=== PATIENT | male | born 1980 | race Caucasian/White ===

== ENCOUNTER → 2017-04-29 | Outpatient (CLI) | payer OTHER ==
--- NOTE | 2017-04-29 10:30 | MR ---
EXAMINATION TYPE: MR lumbar spine wo con DATE OF EXAM: 04/29/2017 COMPARISON: NONE HISTORY: intervertebral disc displacement pain, monoplegia of lower limb affecting unspecified site a ll per order. Extreme pain in back causing numbness in bilateral legs including buttocks and thigh si nce 2008 per patient. TECHNIQUE: Multiplanar, multisequence imaging of the lumbar spine is performed without IV contrast. FINDINGS: Sagittal images of the lumbar spine show vertebral body heights and alignment to appear sat isfactory. There is disc desiccation L5-S1 level with posterior disc herniation seen on sagittal imag es otherwise the intervertebral discs demonstrate normal heights and hydration. The conus medullaris is normal in position and signal ending at mid L1 level. The bone marrow signal intensity is within normal limits. No significant spurring is seen. Axial images show the T12-L1, L1-L2, L2-L3, L3-L4, and L4-L5 levels all to appear within normal limit s. Axial images at the L5-S1 level shows central disc protrusion but spinal canal is preserved and bilat eral neural foramina are patent. Increased signal posteriorly consistent with annular tear is noted. No suspicious retroperitoneal findings are seen. IMPRESSION: There is disc desiccation and annular tear L5-S1 level with posterior disc herniation not ed. No significant herniation however is seen to account for bilateral radiculopathy type symptoms.
== END | disposition home or self-care (01) ==
LOC: RADMRIMAIN 09:23
PROVIDERS: ATTEND Nurse Practitioner
DX: M51.27 Other intervertebral disc displacement, lumbosacral region (principal); M51.37 Other intervertebral disc degeneration, lumbosacral region
CPT/HCPCS: 72148

== ENCOUNTER → 2017-07-22 | Outpatient (CLI) | payer OTHER ==
[2017-07-22 11:51] LABS: Basophils % (A) 0 %; CHCM 35.1; Eosinophils # (A) 0.1 k/uL (0-0.7); Eosinophils % (A) 1 %; HCT 49.4 % (39.0-53.0); HDW 2.33; HGB 16.6 gm/dL (13.0-17.5); Luc # (Auto) 0.11; Luc % (Auto) 2; Lymphocytes # (A) 1.8 k/uL (1.0-4.8); Lymphocytes % (A) 25 %; MCH 31.8 pg (25.0-35.0); MCHC 33.6 g/dL (31.0-37.0); MCV 94.5 fL (80.0-100.0); Mean Platelet Volume 8.5; Monocytes # (A) 0.5 k/uL (0-1.0); Monocytes % (A) 7 %; Neutrophils # (A) 4.7 k/uL (1.3-7.7); Neutrophils % (A) 65 %; RBC 5.23 m/uL (4.30-5.90); RDW 14.1 % (11.5-15.5); WBC 7.2 k/uL (3.8-10.6); WBC (Perox) 6.98
[2017-07-22 12:18] LABS: ALT 30 U/L (21-72); AST 23 U/L (17-59); Alkaline Phosphatase 88 U/L (38-126); Anion Gap 11 mmol/L; Blood Urea Nitrogen 19 mg/dL (9-20); Calcium 9.2 mg/dL (8.4-10.2); Carbon Dioxide 24 mmol/L (22-30); Chloride 105 mmol/L (98-107); Glucose 98 mg/dL (74-99); Non-African American GFR(MDRD) >60 (>60 ml/min/1.73 sqM); Potassium 4.1 mmol/L (3.5-5.1); Sodium 140 mmol/L (137-145); Total Bilirubin 0.5 mg/dL (0.2-1.3); Total Protein 7.7 g/dL (6.3-8.2)
[2017-07-22 13:03] LABS: Vitamin B12 325 pg/mL (239-931)
== END | disposition home or self-care (01) ==
LOC: LABWHC1 11:06
PROVIDERS: ATTEND Nurse Practitioner Acute Care
DX: E55.9 Vitamin D deficiency, unspecified (principal); M62.838 Other muscle spasm
CPT/HCPCS: 36415; 80053; 82306; 82607; 84439; 84443; 84481; 85025

== ENCOUNTER → 2018-01-14 | Outpatient (CLI) | payer OTHER ==
--- NOTE | 2018-01-14 08:50 | MR ---
MRI CERVICAL SPINE: CLINICAL HISTORY: Cervicalgia per order. Neck pain that goes into arms since 2008. TECHNIQUE: Multiplanar, multisequence imaging of the cervical spine is performed without IV contrast. COMPARISON: CT cervical spine April 15, 2012. FINDINGS: Sagittal images of the cervical spine show the craniocervical junction to remain within nor mal limits. The cervical and upper thoracic spinal cord is normal in course, caliber, and signal. V ertebral alignment remains anatomic. The vertebral body and intravertebral disk heights remain natividad l. There are tiny posterior disc herniation C5-C6 and C6-C7 level on sagittal images minimally effaci ng anterior thecal sac. The bone marrow signal intensity is within normal limits. No significant spur ring is seen. Axial images show the C2-C3 level to appear within normal limits. Axial images at C3-C4 level show left central disc protrusion and left foraminal spur disc complex, t here is effacement of the anterior thecal sac and asymmetric mild left-sided neural foraminal narrowi ng. Right-sided neural foramen is patent. Axial images at C4-C5 level are felt within normal limits. Axial images at C5-C6 level show broad-based left paracentral disc protrusion effacing anterior theca l sac and causing moderate left and mild to moderate right-sided neural foraminal narrowing on axial image 24. Axial images at C6-C7 level show broad-based right paracentral disc protrusion effacing anterolateral thecal sac, bilateral neural foramina are patent. Axial images at C7-T1 level are felt within normal limits. IMPRESSION: Multilevel degenerative changes in the cervical spine as detailed above most prominent at C5-C6 level.
== END | disposition home or self-care (01) ==
LOC: RADMRIMAIN 08:05
PROVIDERS: ATTEND Psychiatry & Neurology Neurology
DX: M47.812 Spondylosis without myelopathy or radiculopathy, cervical region (principal); Z88.4 Allergy status to anesthetic agent; Z88.8 Allergy status to other drugs, medicaments and biological substances
CPT/HCPCS: 72141

== ENCOUNTER 2018-05-30 10:26 | Emergency (ER) | payer OTHER ==
--- NOTE | 2018-05-30 10:41 | ED ---
Male Urogenital HPI - General Chief complaint: Urogenital Stated complaint: Male Gu Time Seen by Provider: 05/30/18 10:36 Source: patient, RN notes reviewed Mode of arrival: ambulatory Limitations: no limitations - History of Present Illness Initial comments: This a 37-year-old male presents emergency Department chief complaint of dysuria. Patient states that this has been present for last week with no improvement. Patient denies any penile lesions, sores or any penile drainage. Patient is concerned that he may have an STD as he recently found out his has been having intercourse with several other people has been unprotected. Patient states that he has no history of STD. Patient denies any prior urinary tract infections. Denies any fever, chills, flank pain, abdominal discomfort. - Related Data Home Medications Medication Instructions Recorded Confirmed Baclofen [Lioresal] 10 mg PO BID PRN 05/30/18 05/30/18 DULoxetine HCL [Cymbalta] 30 mg PO BID 05/30/18 05/30/18 HYDROcodone/APAP 5-325MG [[place] 1 tab PO BID 05/30/18 05/30/18 5-325] Sertraline [Zoloft] 100 mg PO DAILY 05/30/18 05/30/18 Allergies Allergy/AdvReac Type Severity Reaction Status Date / Time cortisone Allergy Unknown Verified 05/30/18 10:51 cyclobenzaprine HCl Allergy Rash/Hives Verified 05/30/18 10:51 [From Flexeril] ketorolac Allergy Nausea & Verified 05/30/18 10:51 Vomiting lidocaine Allergy Rash/Hives Verified 05/30/18 10:51 Review of Systems ROS Statement: Those systems with pertinent positive or pertinent negative responses have been documented in the HPI. ROS Other: All systems not noted in ROS Statement are negative. Past Medical History Past Medical History: No Reported History History of Any Multi-Drug Resistant Organisms: None Reported Past Surgical History: No Surgical Hx Reported Past Psychological History: No Psychological Hx Reported Smoking Status: Never smoker Past Alcohol Use History: None Reported Past Drug Use History: Marijuana General Exam Limitations: no limitations General appearance: alert, in no apparent distress Head exam: Present: atraumatic, normocephalic, normal inspection Respiratory exam: Present: normal lung sounds bilaterally. Absent: respiratory distress, wheezes, rales, rhonchi, stridor Cardiovascular Exam: Present: regular rate, normal rhythm, normal heart sounds. Absent: systolic murmur, diastolic murmur, rubs, gallop, clicks GI/Abdominal exam: Present: soft, normal bowel sounds. Absent: distended, tenderness, guarding, rebound, rigid Back exam: Absent: CVA tenderness (R), CVA tenderness (L) Skin exam: Present: warm, dry, intact, normal color. Absent: rash Course Vital Signs 05/30/18 10:30 Temperature 98.3 F Pulse Rate 79 Respiratory 18 Rate Blood Pressure 141/95 O2 Sat by Pulse 99 Oximetry Medical Decision Making - Medical Decision Making 37-year-old male presents from for dysuria. Patient is concerned about possible STDs. Patient's urine was cultured, GC chlamydia were obtained. Patient has no evidence UTI on urinalysis. Patient was given Rocephin and azithromycin. - Lab Data Lab Results 05/30/18 Range/Units 10:38 Urine Color Yellow Urine Appearance Clear (Clear) Urine pH 5.5 (5.0-8.0) Ur Specific [place] 1.030 (1.001-1.035) Urine Protein 1+ H (Negative) Urine Glucose (UA) Negative (Negative) Urine Ketones Trace H (Negative) Urine Blood Negative (Negative) Urine Nitrite Negative (Negative) Urine Bilirubin Negative (Negative) Urine Urobilinogen 2.0 (<2.0) mg/dL Ur Leukocyte Esterase Negative (Negative) Urine WBC 1 (0-5) /hpf Urine Mucus Many H (None) /hpf Disposition Clinical Impression: Dysuria Disposition: HOME SELF-CARE Condition: Stable Instructions: Dysuria (ED) Additional Instructions: Please return to the Emergency Department if symptoms worsen or any other concerns. Is patient prescribed a controlled substance at d/c from ED?: No Referrals: Lorena Johnson MD [Primary Care Provider] - 1-2 days Time of Disposition: 11:18
[2018-05-30 11:04] LABS: Appearance,Urine Clear (Clear); Bilirubin,Urine Negative (Negative); Blood,Urine Negative (Negative); Color,Urine Yellow; Glucose,Urine (UA) Negative (Negative); Ketones,Urine Trace (Negative); Leukocyte Esterase,Urine Negative (Negative); Mucus,Urine Many /hpf; Nitrite,Urine Negative (Negative); PH, Urine 5.5 (5.0-8.0); Protein,Urine 1+ (Negative); WBC,Urine 1 /hpf (0-5)
[2018-05-30] MEDS ORDERED: cefTRIAXone 250 MG VIAL IM STA (11:17)
[2018-05-30] MEDS ORDERED: AZITHROMYCIN 250 MG TAB PO STA (11:17)
[2018-05-30 11:51] VITALS: BP 135/65; PULSE 72; RESP 20; TEMP 98.6
[2018-06-01 08:30] LABS: C. trachomatis,PCR Negative (Neg,Equiv); Chlamydia trachomatis Source Urine
[2018-06-01 09:20] LABS: N. gonorrhoeae,PCR Negative (Neg,Equiv); Neisseria Source Urine
== END 2018-05-30 11:50 | disposition home or self-care (01) ==
LOC: EC 10:26
DX: R30.0 Dysuria (principal); Z79.891 Long term (current) use of opiate analgesic; Z79.899 Other long term (current) drug therapy; Z88.4 Allergy status to anesthetic agent; Z88.6 Allergy status to analgesic agent; Z88.8 Allergy status to other drugs, medicaments and biological substances
CPT/HCPCS: 81001; 87491; 87591; 87086; 99283; 96372; J0696

== ENCOUNTER 2018-10-13 20:39 | Emergency (ER) | payer OTHER ==
[2018-10-13 20:45] VITALS: RESP 20
[2018-10-13] MEDS ORDERED: cefTRIAXone 250 MG VIAL IM STA (21:05)
[2018-10-13] MEDS ORDERED: AZITHROMYCIN 500 MG TAB PO STA (21:06)
[2018-10-13 21:18] LABS: Appearance,Urine Clear (Clear); Bilirubin,Urine Negative (Negative); Blood,Urine Negative (Negative); Color,Urine Yellow; Glucose,Urine (UA) Negative (Negative); Ketones,Urine Trace (Negative); Leukocyte Esterase,Urine Negative (Negative); Nitrite,Urine Negative (Negative); Protein,Urine Trace (Negative); Specific Gravity,Urine 1.024 (1.001-1.035)
--- NOTE | 2018-10-13 21:47 | ED ---
General Adult HPI - General Chief complaint: Recheck/Abnormal Lab/Rx Stated complaint: STD Testing Source: patient, RN notes reviewed, old records reviewed Mode of arrival: ambulatory Limitations: no limitations - History of Present Illness Initial comments: 37-year-old male patient presents to ED for evaluation of potential STI. Patient states the exception ago from approximately 3 weeks ago. Patient states that he has had approximately 3 days of dysuria, burning with urination, some stringy discharge from his urethra. Patient has had chlamydia in the past , states that this feels the same. Patient denies any lesions on penis, denies any pain in testicles a prostate. Patient denies fever chills, nausea vomiting diarrhea, chest pain, shortness breath, or symptoms. Systemic: Pt denies fatigue, myalgia, fever/chills, rash. Pt denies weakness, night sweats, weight loss. Neuro: Pt denies headache, visual disturbances, syncope or pre-syncope. HEENT: Pt denies ocular discharge or irritation, otalgia, rhinorrhea, pharyngitis or notable lymphadenopathy. Cardiopulmonary: Pt denies chest pain, SOB, heart palpitations, dyspnea on exertion. Abdominal/GI: Pt denies abdominal pain, n/v/d. : Denies new onset urinary or bowel incontinence. MSK: Pt denies myalgia, loss of strength or function in extremities. Neuro: Pt denies new onset weakness, paresthesias. - Related Data Home Medications Medication Instructions Recorded Confirmed Baclofen [Lioresal] 10 mg PO BID PRN 05/30/18 05/30/18 DULoxetine HCL [Cymbalta] 30 mg PO BID 05/30/18 05/30/18 HYDROcodone/APAP 5-325MG [[place] 1 tab PO BID 05/30/18 05/30/18 5-325] Sertraline [Zoloft] 100 mg PO DAILY 05/30/18 05/30/18 Allergies Allergy/AdvReac Type Severity Reaction Status Date / Time cortisone Allergy Unknown Verified 10/13/18 20:45 cyclobenzaprine HCl Allergy Rash/Hives Verified 10/13/18 20:45 [From Flexeril] ketorolac Allergy Nausea & Verified 10/13/18 20:45 Vomiting lidocaine Allergy Rash/Hives Verified 10/13/18 20:45 Review of Systems ROS Statement: Those systems with pertinent positive or pertinent negative responses have been documented in the HPI. ROS Other: All systems not noted in ROS Statement are negative. Past Medical History Past Medical History: Seizure Disorder History of Any Multi-Drug Resistant Organisms: None Reported Past Surgical History: No Surgical Hx Reported Past Psychological History: No Psychological Hx Reported Smoking Status: Never smoker Past Alcohol Use History: None Reported Past Drug Use History: Marijuana General Exam - General Exam Comments Initial Comments: Constitutional: NAD, AOX3, Pt has pleasant affect. HEENT: NC/AT, trachea midline, neck supple, no lymphadenopathy. Posterior pharynx non erythematous, without exudates. External ears appear normal, without discharge. Mucous membranes moist. Eyes PERRLA, EOM intact. There is no scleral icterus. No pallor noted. Cardiopulmonary: RRR, no murmurs, rubs or gallops, no JVD noted. Lungs CTAB in anterior and posterior brown. No peripheral edema. Abdominal exam: Abdomen soft and non-distended. Abdomen non-tender to palpation in all 4 quadrants. Bowel sounds active in LLQ. No hepatosplenomegaly. Neuro: CN II-XII grossly intact. No nuchal rigidity. MSK: No posterior calf tenderness bilaterally, homans sign negative bilaterally. Posterior tibialis and radial pulse +2 bilaterally. : No lesions noted on penis, no pain testicles/epididymitis, no rash, no papules, no discharge noted return. Limitations: no limitations Course Vital Signs 10/13/18 10/13/18 20:42 21:58 Temperature 98.4 F 98.7 F Pulse Rate 82 80 Respiratory 20 20 Rate Blood Pressure 141/92 140/82 O2 Sat by Pulse 95 98 Oximetry Medical Decision Making - Medical Decision Making 37-year-old male patient presents in ED for evaluation of potential gonorrhea or chlamydia exposure. Patient has had approximately 3 days of dysuria. Patient disease that I/chlamydia in the past states that this feels the same. Patient also had a proximal to 2 days of discharge from urethra. Physical exam did not display acute abnormality. Genital exam did not display any pathology, no discharge noted, no lesions, no other pathologic findings. Patient treated empirically for gonorrhea/chlamydia. UA did not display any UTI. Patient denies extremity PCR tests conducted, patient recontacted the positive. Patient to follow-up PCP in 1-2 days. Patient to return to ED if any signs or symptoms develop including lesion, fever/chills, nausea vomiting diarrhea, pain in testicles, pain prostate, any other new symptoms. Case discussed with Dr. López. - Lab Data Lab Results 10/13/18 Range/Units 21:10 Urine Color Yellow Urine Appearance Clear (Clear) Urine pH 6.0 (5.0-8.0) Ur Specific [place] 1.024 (1.001-1.035) Urine Protein Trace H (Negative) Urine Glucose (UA) Negative (Negative) Urine Ketones Trace H (Negative) Urine Blood Negative (Negative) Urine Nitrite Negative (Negative) Urine Bilirubin Negative (Negative) Urine Urobilinogen 2.0 (<2.0) mg/dL Ur Leukocyte Esterase Negative (Negative) Disposition Clinical Impression: STI (sexually transmitted infection) Disposition: HOME SELF-CARE Condition: Good Instructions: Chlamydia (ED), Gonorrhea (ED) Additional Instructions: Patient to adhere to previously discussed treatment plan and will take medication(s) as directed. Patient to follow up with PCP in 1-2 days. Patient to return to ED if symptoms do not improve. Is patient prescribed a controlled substance at d/c from ED?: No Referrals: Lorena Johnson MD [Primary Care Provider] - 1-2 days Time of Disposition: 21:47
[2018-10-13 21:59] VITALS: BP 140/82; PULSE 80; TEMP 98.7
== END 2018-10-13 21:58 | disposition home or self-care (01) ==
LOC: EC 20:39
DX: A64 Unspecified sexually transmitted disease (principal); Z79.899 Other long term (current) drug therapy; Z79.891 Long term (current) use of opiate analgesic; Z88.8 Allergy status to other drugs, medicaments and biological substances; Z88.6 Allergy status to analgesic agent
CPT/HCPCS: 81003; 87491; 87591; 99284; 96372; J0696

== ENCOUNTER 2018-12-09 13:29 | Emergency (ER) | payer OTHER ==
[2018-12-09 13:35] VITALS: BP 137/99; PULSE 99; RESP 20; TEMP 98
[2018-12-09] MEDS ORDERED: metroNIDAZOLE 500 MG TAB PO STA (13:51)
--- NOTE | 2018-12-09 14:12 | ED ---
General Adult HPI - General Chief complaint: Recheck/Abnormal Lab/Rx Stated complaint: Male Time Seen by Provider: 12/09/18 13:38 Source: patient, RN notes reviewed Mode of arrival: ambulatory Limitations: no limitations - History of Present Illness Initial comments: 38-year-old male without any significant past medical history presents to the emergency department for a chief complaint of exposure to Trichomonas. Patient states he was having symptoms of STDs about 2 months ago when he was tested and treated for gonorrhea and Chlamydia. These were negative but symptoms did resolve. Patient states that he recently found out his girlfriend was positive for Trichomonas. Patient states he was not tested or treated for this STD. Patient states he would like treatment today. He denies any symptoms. He denies dysuria, urethral discharge, testicular pain or swelling. Patient has no other complaints at this time including shortness of breath, chest pain, abdominal pain, nausea or vomiting, headache, or visual changes. - Related Data Home Medications Medication Instructions Recorded Confirmed Baclofen [Lioresal] 10 mg PO BID PRN 05/30/18 12/09/18 DULoxetine HCL [Cymbalta] 60 mg PO DAILY 12/09/18 12/09/18 Allergies Allergy/AdvReac Type Severity Reaction Status Date / Time cortisone Allergy Unknown Verified 12/09/18 13:43 cyclobenzaprine HCl Allergy Rash/Hives Verified 12/09/18 13:43 [From Flexeril] ketorolac Allergy Nausea & Verified 12/09/18 13:43 Vomiting lidocaine Allergy Rash/Hives Verified 12/09/18 13:43 Review of Systems ROS Statement: Those systems with pertinent positive or pertinent negative responses have been documented in the HPI. ROS Other: All systems not noted in ROS Statement are negative. Past Medical History Past Medical History: Seizure Disorder History of Any Multi-Drug Resistant Organisms: None Reported Past Surgical History: No Surgical Hx Reported Past Psychological History: No Psychological Hx Reported Smoking Status: Never smoker Past Drug Use History: Marijuana General Exam Limitations: no limitations General appearance: alert, in no apparent distress Head exam: Present: atraumatic, normocephalic, normal inspection Eye exam: Present: normal appearance, PERRL, EOMI. Absent: scleral icterus, conjunctival injection, periorbital swelling ENT exam: Present: normal exam, mucous membranes moist Neck exam: Present: normal inspection, full ROM. Absent: tenderness, meningismus, lymphadenopathy Respiratory exam: Present: normal lung sounds bilaterally. Absent: respiratory distress, wheezes, rales, rhonchi, stridor Cardiovascular Exam: Present: regular rate, normal rhythm, normal heart sounds. Absent: systolic murmur, diastolic murmur, rubs, gallop, clicks GI/Abdominal exam: Present: soft, normal bowel sounds. Absent: distended, tenderness, guarding, rebound, rigid exam: Present: other (Patient refused) Neurological exam: Present: alert, oriented X3, CN II-XII intact Psychiatric exam: Present: normal affect, normal mood Course Vital Signs 12/09/18 13:32 Temperature 98.0 F Pulse Rate 99 Respiratory 20 Rate Blood Pressure 137/99 O2 Sat by Pulse 99 Oximetry Medical Decision Making - Medical Decision Making 38-year-old male presents to the emergency department for exposure to Trichomonas. Patient was treated and tested negatively for gonorrhea and chlamydia. Patient denies any symptoms. Patient was exposed to Trichomonas. I did offer to test patient for Trichomonas as well as repeat gonorrhea and chlamydia testing which she refuses. He states he would rather be treated for Trichomonas. I did offer to treat for gonorrhea and chlamydia as well but he isn't concerned for these and does not want treatment at this time. Patient will be treated with 2 g of Flagyl. He will follow up with primary care. He will return if he has any worsening symptoms. Discussed practices for safe sexual intercourse and to make sure his girlfriend is treated for Trichomonas as well. Disposition Clinical Impression: Possible exposure to STD Disposition: HOME SELF-CARE Condition: Good Instructions (If sedation given, give patient instructions): Sexually Transmitted Diseases (ED), Trichomoniasis (ED), Safe Sex (ED) Additional Instructions: Please follow up with primary care in 1-2 days. Please return to the emergency department if you have any worsening symptoms. Is patient prescribed a controlled substance at d/c from ED?: No Referrals: Lorena Johnson MD [Primary Care Provider] - 1-2 days Time of Disposition: 14:08
== END 2018-12-09 14:18 | disposition home or self-care (01) ==
LOC: EC 13:29
DX: Z20.2 Contact with and (suspected) exposure to infections with a predominantly sexual mode of transmission (principal); Z88.4 Allergy status to anesthetic agent; Z88.6 Allergy status to analgesic agent; Z88.8 Allergy status to other drugs, medicaments and biological substances; Z79.899 Other long term (current) drug therapy; Z53.20 Procedure and treatment not carried out because of patient's decision for unspecified reasons
CPT/HCPCS: 99283

== ENCOUNTER 2020-09-07 02:54 | Emergency (ER) | payer OTHER ==
[2020-09-07 03:04] VITALS: BP 118/80; PULSE 85; RESP 17; TEMP 98.8
[2020-09-07] MEDS ORDERED: DOXYCYCLINE 100 MG CAP PO STA (03:12)
--- NOTE | 2020-09-07 03:18 | ED ---
Skin/Abscess/FB HPI - General Chief complaint: Skin/Abscess/Foreign Body Stated complaint: Bit by a tick Time Seen by Provider: 09/07/20 02:56 Source: patient, RN notes reviewed, old records reviewed Mode of arrival: ambulatory Limitations: no limitations - History of Present Illness Initial comments: this is a 39-year-old male 2 the ER for evaluation patient has wound to right leg patient found take on his leg 2 days ago, patient states he pulled the tick off and has now developed a rash. No other complaints no fevers, no significant other symptoms MD complaint: rash, insect bite/sting (we'll patient believes his tick bite to right leg) -: days(s) (2) Tetanus Up to Date: yes Location: [facility] Severity: mild Severity scale (1-10): 2 Quality: aching Consistency: constant Improves with: none Worsens with: none Context: none Associated symptoms: other (mild rash) Treatments Prior to Arrival: none - Related Data Home Medications Medication Instructions Recorded Confirmed Baclofen [Lioresal] 10 mg PO BID PRN 05/30/18 12/09/18 DULoxetine HCL [Cymbalta] 60 mg PO DAILY 12/09/18 12/09/18 Previous Rx's Medication Instructions Recorded Doxycycline [Vibramycin] 100 mg PO BID 21 Days #42 capsule 09/07/20 Allergies Allergy/AdvReac Type Severity Reaction Status Date / Time cortisone Allergy Unknown Verified 09/07/20 03:04 cyclobenzaprine HCl Allergy Rash/Hives Verified 09/07/20 03:04 [From Flexeril] ketorolac Allergy Nausea & Verified 09/07/20 03:04 Vomiting lidocaine Allergy Rash/Hives Verified 09/07/20 03:04 Review of Systems ROS Statement: Those systems with pertinent positive or pertinent negative responses have been documented in the HPI. ROS Other: All systems not noted in ROS Statement are negative. Past Medical History Past Medical History: Seizure Disorder Additional Past Medical History / Comment(s): back pain History of Any Multi-Drug Resistant Organisms: None Reported Past Surgical History: No Surgical Hx Reported Past Psychological History: No Psychological Hx Reported Smoking Status: Never smoker Past Alcohol Use History: None Reported Past Drug Use History: None Reported, Marijuana General Exam - General Exam Comments Initial Comments: dylan does have mild rash to right lower extremity with open wound Limitations: no limitations General appearance: alert, in no apparent distress Head exam: Present: atraumatic, normocephalic, normal inspection Eye exam: Present: normal appearance, PERRL, EOMI. Absent: scleral icterus, conjunctival injection, periorbital swelling ENT exam: Present: normal exam, mucous membranes moist Neck exam: Present: normal inspection. Absent: tenderness, meningismus, lymphadenopathy Respiratory exam: Present: normal lung sounds bilaterally. Absent: respiratory distress, wheezes, rales, rhonchi, stridor Cardiovascular Exam: Present: regular rate, normal rhythm, normal heart sounds. Absent: systolic murmur, diastolic murmur, rubs, gallop, clicks GI/Abdominal exam: Present: soft, normal bowel sounds. Absent: distended, tenderness, guarding, rebound, rigid Extremities exam: Present: normal inspection, full ROM, normal capillary refill. Absent: tenderness, pedal edema, joint swelling, calf tenderness Back exam: Present: normal inspection Neurological exam: Present: alert, oriented X3, CN II-XII intact Psychiatric exam: Present: normal affect, normal mood Skin exam: Present: warm, dry, intact, normal color. Absent: rash Course Vital Signs 09/07/20 03:02 Temperature 98.8 F Pulse Rate 85 Respiratory 17 Rate Blood Pressure 118/80 O2 Sat by Pulse 99 Oximetry - Reevaluation(s) Reevaluation #1: 09/07/20 03:17 medical records reviewed Reevaluation #2: 09/07/20 03:17 patient to follow-up with primary care Medical Decision Making - Medical Decision Making 39-year-old male to the ER for evaluation of right hip pain.patient does have what appears to be tick bites that leg we'll treat patient with antibiotics and discharged follow-up with primary Disposition Clinical Impression: Tick bite, Tick bite of right thigh Disposition: HOME SELF-CARE Condition: Good Instructions (If sedation given, give patient instructions): Tick Bite (ED) Prescriptions: Doxycycline [Vibramycin] 100 mg PO BID 21 Days #42 capsule Is patient prescribed a controlled substance at d/c from ED?: No Referrals: Dulce Hernandez NPC [Primary Care Provider] - 1-2 days
== END 2020-09-07 03:26 | disposition home or self-care (01) ==
LOC: EC 02:54
DX: S70.361A Insect bite (nonvenomous), right thigh, initial encounter (principal); Z88.8 Allergy status to other drugs, medicaments and biological substances; Z88.6 Allergy status to analgesic agent; W57.XXXA Bitten or stung by nonvenomous insect and other nonvenomous arthropods, initial encounter
CPT/HCPCS: 99282

== ENCOUNTER 2020-10-20 11:51 | Emergency (ER) | payer OTHER ==
[2020-10-20 12:12] VITALS: BP 144/83; PULSE 99; RESP 18; TEMP 98.2
[2020-10-20] MEDS ORDERED: cefTRIAXone 250 MG VIAL IM STA (12:21)
[2020-10-20] MEDS ORDERED: AZITHROMYCIN 250 MG TAB PO STA (12:21)
--- NOTE | 2020-10-20 12:23 | ED ---
Male Urogenital HPI - General Chief complaint: Urogenital Stated complaint: STD Test Time Seen by Provider: 10/20/20 12:10 Source: patient, RN notes reviewed Mode of arrival: ambulatory Limitations: no limitations - History of Present Illness Initial comments: 40-year-old male presents emergency Department chief complaint of possible STD exposure. Patient states he had intercourse on and That Today She Was Positive for Gonorrhea and Chlamydia. Patient States That He Has Slight Discharge No Dysuria No Fevers or Chills. Patient Denies Any Penile Lesions or Sores. Patient Offers No Other Complaints. - Related Data Home Medications Medication Instructions Recorded Confirmed Baclofen [Lioresal] 10 mg PO BID PRN 05/30/18 12/09/18 DULoxetine HCL [Cymbalta] 60 mg PO DAILY 12/09/18 12/09/18 Previous Rx's Medication Instructions Recorded Doxycycline [Vibramycin] 100 mg PO BID 21 Days #42 capsule 09/07/20 Allergies Allergy/AdvReac Type Severity Reaction Status Date / Time cortisone Allergy Unknown Verified 10/20/20 12:12 cyclobenzaprine HCl Allergy Rash/Hives Verified 10/20/20 12:12 [From Flexeril] ketorolac Allergy Nausea & Verified 10/20/20 12:12 Vomiting lidocaine Allergy Rash/Hives Verified 10/20/20 12:12 Review of Systems ROS Statement: Those systems with pertinent positive or pertinent negative responses have been documented in the HPI. ROS Other: All systems not noted in ROS Statement are negative. Past Medical History Past Medical History: Seizure Disorder Additional Past Medical History / Comment(s): back pain History of Any Multi-Drug Resistant Organisms: None Reported Past Surgical History: No Surgical Hx Reported Past Psychological History: Bipolar, Depression Smoking Status: Vaper Past Alcohol Use History: None Reported Past Drug Use History: None Reported, Marijuana General Exam Limitations: no limitations General appearance: alert, in no apparent distress Head exam: Present: atraumatic, normocephalic, normal inspection Eye exam: Present: normal appearance, PERRL, EOMI. Absent: scleral icterus, conjunctival injection, periorbital swelling Respiratory exam: Present: normal lung sounds bilaterally. Absent: respiratory distress, wheezes, rales, rhonchi, stridor Cardiovascular Exam: Present: regular rate, normal rhythm, normal heart sounds. Absent: systolic murmur, diastolic murmur, rubs, gallop, clicks GI/Abdominal exam: Present: soft, normal bowel sounds. Absent: distended, tenderness, guarding, rebound, rigid Course Vital Signs 10/20/20 12:08 Temperature 98.2 F Pulse Rate 99 Respiratory 18 Rate Blood Pressure 144/83 O2 Sat by Pulse 97 Oximetry Medical Decision Making - Medical Decision Making Patient was given Rocephin, azithromycin. Patient advised to remain absent for 1 week. Coronary and chlamydia testing were sent. Disposition Clinical Impression: STD exposure Disposition: HOME SELF-CARE Condition: Stable Instructions (If sedation given, give patient instructions): Sexually Transmitted Diseases (ED) Additional Instructions: Please return to the Emergency Department if symptoms worsen or any other concerns. Is patient prescribed a controlled substance at d/c from ED?: No Referrals: Lorena Johnson MD [Primary Care Provider] - 1-2 days Time of Disposition: 12:23
[2020-10-22 15:17] LABS: C. trachomatis,PCR Negative (Neg,Equiv); Chlamydia trachomatis Source Urine; N. gonorrhoeae,PCR Negative (Neg,Equiv); Neisseria Source Urine
== END 2020-10-20 12:42 | disposition home or self-care (01) ==
LOC: EC 11:51
DX: Z20.2 Contact with and (suspected) exposure to infections with a predominantly sexual mode of transmission (principal); M54.9 Dorsalgia, unspecified; F32.9 Major depressive disorder, single episode, unspecified; F17.290 Nicotine dependence, other tobacco product, uncomplicated; Z79.899 Other long term (current) drug therapy
CPT/HCPCS: 87491; 87591; 99283; 96372; J0696

== ENCOUNTER 2023-03-30 20:47 | Observation (INO) | payer OTHER ==
[2023-03-30 21:54] LABS: Basophils # (A) 0.1 k/uL (0-0.2); Basophils % (A) 0 %; Eosinophils # (A) 0.1 k/uL (0-0.7); Eosinophils % (A) 1 %; HCT 44.2 % (39.0-53.0); HGB 15.2 gm/dL (13.0-17.5); Lymphocytes # (A) 2.2 k/uL (1.0-4.8); Lymphocytes % (A) 19 %; MCHC 34.3 g/dL (31.0-37.0); MCV 90.5 fL (80.0-100.0); Mean Platelet Volume 8.8; Monocytes # (A) 0.6 k/uL (0-1.0); Monocytes % (A) 5 %; Neutrophils # (A) 8.3 k/uL (1.3-7.7); Neutrophils % (A) 72 %; Platelet Count 262 k/uL (150-450); RBC 4.89 m/uL (4.30-5.90); RDW 12.7 % (11.5-15.5); WBC 11.4 k/uL (3.8-10.6)
[2023-03-30 22:11] LABS: Partial Thromboplastin Time 25.5 sec (22.0-30.0); Prothrombin Time 10.4 sec (9.0-12.0)
[2023-03-30 22:34] LABS: ALT 33 U/L (4-49); AST 41 U/L (17-59); African American GFR (CKD) >90 (>60 ml/min/1.73 sqM); Albumin 4.4 g/dL (3.5-5.0); Alkaline Phosphatase 92 U/L (38-126); Anion Gap 13 mmol/L; Blood Urea Nitrogen 15 mg/dL (9-20); Calcium 8.8 mg/dL (8.4-10.2); Carbon Dioxide 25 mmol/L (22-30); Chloride 104 mmol/L (98-107); Glucose 134 mg/dL (74-99); Non-African American GFR(CKD) 88 (>60 ml/min/1.73 sqM); Potassium 3.6 mmol/L (3.5-5.1); Sodium 142 mmol/L (137-145); Total Bilirubin 0.6 mg/dL (0.2-1.3); Total Protein 7.6 g/dL (6.3-8.2)
[2023-03-30] MEDS ORDERED: HYDROmorphone 0.5 MG/0.5 ML SYRINGE IVP STA (23:06)
[2023-03-30] MEDS ORDERED: SODIUM CHLORIDE 0.9% 1,000 ML IV ONE (23:06)
--- NOTE | 2023-03-30 23:31 | XR ---
EXAMINATION TYPE: XR chest 2V DATE OF EXAM: 03/30/2023 COMPARISON: 03/11/2015 INDICATION: Chest pain and dizziness TECHNIQUE: Frontal and lateral views of the chest are obtained. FINDINGS: The heart size is normal. The pulmonary vasculature is normal. The lungs are clear. IMPRESSION: 1. No acute pulmonary process.
--- NOTE | 2023-03-30 23:46 | US ---
EXAMINATION TYPE: US venous doppler duplex LE LT DATE OF EXAM: 03/30/2023 9:46 PM COMPARISON: NONE CLINICAL INDICATION: Male, 42 years old with history of pain and swelling; SOB and pain in left leg. Pt states he had previous 1 week ago at [facility] that was negative for DVT SIDE PERFORMED: Left TECHNIQUE: The lower extremity deep venous system is examined utilizing real time linear array sonog jaden with graded compression, doppler sonography and color-flow sonography. VESSELS IMAGED: Common Femoral Vein Deep Femoral Vein Greater Saphenous Vein * Femoral Vein Popliteal Vein Small Saphenous Vein * Proximal Calf Veins (* superficial vessels) Left Leg: Negative for DVT IMPRESSION: 1. Left lower extremity ultrasound negative for deep venous thrombosis
--- NOTE | 2023-03-30 23:54 | ED ---
General Adult HPI - General Chief complaint: Chest Pain Stated complaint: Chest pain, Left Leg Swelling, Dizziness Time Seen by Provider: 03/30/23 21:37 Source: patient, RN notes reviewed, old records reviewed Mode of arrival: wheelchair Limitations: no limitations - History of Present Illness Initial comments: 42-year-old male presents for evaluation of left leg swelling which is been present over the past one week and the development of central chest pain and dyspnea. This is been present for the past 2 days. Patient states he was seen at outside hospital and had ultrasound performed of the left leg which was negative for DVT. He states he has no prior cardiac history. No history of DVT or PE. He states he has had some weight gain over the past several months. No fever. No cough. - Related Data Home Medications Medication Instructions Recorded Confirmed Baclofen [Lioresal] 10 mg PO BID PRN 05/30/18 03/31/23 Cariprazine HCl [Vraylar] 1.5 mg PO DAILY 03/31/23 03/31/23 DULoxetine HCL [Cymbalta] 40 mg PO BID 03/31/23 03/31/23 Dextroamphetamine/Amphetamine 30 mg PO BID 03/31/23 03/31/23 [Adderall] Diclofenac Sodium Gel [Voltaren 2 - 4 gm TOPICAL QID PRN 03/31/23 03/31/23 Gel] Ergocalciferol [Vitamin D2 (1250 1,250 mcg PO QMONTHLY 03/31/23 03/31/23 Mcg = 55208 Iu)] Pregabalin [Lyrica] 150 mg PO TID 03/31/23 03/31/23 hydrOXYzine pamoate [Vistaril] 25 mg PO BID PRN 03/31/23 03/31/23 Previous Rx's Medication Instructions Recorded Metoprolol Tartrate [Lopressor] 50 mg PO BID 30 Days #60 tab 03/31/23 Allergies Allergy/AdvReac Type Severity Reaction Status Date / Time cortisone Allergy Unknown Verified 10/20/20 12:12 cyclobenzaprine HCl Allergy Rash/Hives Verified 10/20/20 12:12 [From Flexeril] ketorolac Allergy Nausea & Verified 10/20/20 12:12 Vomiting lidocaine Allergy Rash/Hives Verified 10/20/20 12:12 Review of Systems ROS Statement: Those systems with pertinent positive or pertinent negative responses have been documented in the HPI. ROS Other: All systems not noted in ROS Statement are negative. Past Medical History Past Medical History: Seizure Disorder Additional Past Medical History / Comment(s): back pain HERNIATION OF CERICAL AND LUMBAR History of Any Multi-Drug Resistant Organisms: None Reported Past Surgical History: No Surgical Hx Reported Past Psychological History: Bipolar, Depression Smoking Status: Vaper Past Alcohol Use History: None Reported Past Drug Use History: None Reported, Marijuana General Exam Limitations: no limitations General appearance: alert, in no apparent distress Head exam: Present: atraumatic, normocephalic Eye exam: Present: normal appearance, PERRL ENT exam: Present: normal exam Neck exam: Present: normal inspection. Absent: tenderness, meningismus Respiratory exam: Present: normal lung sounds bilaterally. Absent: respiratory distress, wheezes Cardiovascular Exam: Present: normal rhythm, tachycardia GI/Abdominal exam: Present: soft. Absent: distended, tenderness, guarding Extremities exam: Present: pedal edema (Left leg is swollen compared to the right) Neurological exam: Present: alert, oriented X3, CN II-XII intact. Absent: motor sensory deficit Psychiatric exam: Present: normal affect, normal mood Skin exam: Present: warm, dry, intact. Absent: cyanosis, diaphoretic Course Vital Signs 03/30/23 03/30/23 03/30/23 20:59 21:43 22:29 Temperature 97.9 F Pulse Rate 120 H 108 H 120 H Pulse Rate [ Suede Cleaner ] Respiratory 20 15 95 H Rate Blood Pressure 145/91 131/89 140/87 O2 Sat by Pulse 96 95 Oximetry 03/30/23 03/31/23 03/31/23 22:30 00:45 02:03 Temperature Pulse Rate 110 H 112 H Pulse Rate [ 120 H Suede Cleaner ] Respiratory 15 13 Rate Blood Pressure 137/89 116/87 O2 Sat by Pulse 96 95 Oximetry 03/31/23 02:09 Temperature Pulse Rate 112 H Pulse Rate [ Suede Cleaner ] Respiratory 13 Rate Blood Pressure 116/87 O2 Sat by Pulse 95 Oximetry Medical Decision Making - Medical Decision Making Was pt. sent in by a medical professional or institution (, PA, COMPONENT OVERHAUL OPERATOR, urgent care, hospital, or longterm...) When possible be specific @ -No Did you speak to anyone other than the patient for history (EMS, parent, family, police, friend...)? What history was obtained from this source @ -No Did you review nursing and triage notes (agree or disagree)? Why? @ -I reviewed and agree with nursing and triage notes Were old charts reviewed (outside hosp., previous admission, EMS record, old EKG, old radiological studies, urgent care reports/EKG's, longterm records)? Report findings @ -No old charts were reviewed Differential Diagnosis (chest pain, altered mental status, abdominal pain women, abdominal pain men, vaginal bleeding, weakness, fever, dyspnea, syncope, headache, dizziness, GI bleed, back pain, seizure, CVA, palpatations, mental health, musculoskeletal)? @ Differential Chest Pain: Stable Angina, Unstable Angina, STEMI, NSTEMI Aortic Dissection, Pneumothorax, Musculoskeletal, Esophageal Spasm GERD, Cholecystitis, Pancreatitis, Zoster, th is is not meant to be an all-inclusive list. EKG interpreted by me (3pts min.). @ -[EKG: Sinus tachycardia, rate of 120, PA interval 146, QRS duration 101, QTC 381, no ST segment elevation. X-rays interpreted by me (1pt min.). @ Negative for acute cardiopulmonary findings CT interpreted by me (1pt min.). @ -CT of the chest and abdomen was performed with contrast, agree with radiologist's interpretation no acute findings U/S interpreted by me (1pt. min.). @ -None done What testing was considered but not performed or refused? (CT, X-rays, U/S, labs)? Why? @ -None What meds were considered but not given or refused? Why? @ -None Did you discuss the management of the patient with other professionals (professionals i.e. , PA, COMPONENT OVERHAUL OPERATOR, lab, RT, psych nurse, director social welfare, health physicist, teacher, legal officer, field nurse case manager)? Give summary @ -Dr. Sherwood Was smoking cessation discussed for >3mins.? @ -No Was critical care preformed (if so, how long)? @ -No Were there social determinants of health that impacted care today? How? (Homelessness, low income, unemployed, alcoholism, drug addiction, transportation, low edu. Level, literacy, decrease access to med. care, fdc, rehab)? @ -No Was there de-escalation of care discussed even if they declined (Discuss DNR or withdrawal of care, Hospice)? DNR status @ -No What co-morbidities impacted this encounter? (DM, HTN, Smoking, COPD, CAD, Cancer, CVA, ARF, Chemo, Hep., AIDS, mental health diagnosis, sleep apnea, morbid obesity)? @ -None Was patient admitted / discharged? Hospital course, mention meds given and route, prescriptions, significant lab abnormalities, going to OR and other pertinent info. @ -42-year-old male presenting to the emergency department for evaluation of left leg swelling, chest pain and palpitations. EKG is sinus tachycardia without ST segment elevation. Chest x-ray is clear. Patient did have an elevated d-dimer and received CT angiogram of the chest which was negative for PE. His initial troponin was negative. He will be kept in observation for serial cardiac enzymes, telemetry, cardiology consultation. Undiagnosed new problem with uncertain prognosis? @ -No Drug Therapy requiring intensive monitoring for toxicity (Heparin, Nitro, Insulin, Cardizem)? @ -No Were any procedures done? @ -No Diagnosis/symptom? @ -Chest pain Acute, or Chronic, or Acute on Chronic? @ -Acute Uncomplicated (without systemic symptoms) or Complicated (systemic symptoms)? @Complicated Side effects of treatment? @ -No Exacerbation, Progression, or Severe Exacerbation? @ -No Poses a threat to life or bodily function? How? (Chest pain, [place], [place], pneumonia, PE, COPD, DKA, ARF, appy, cholecystitis, CVA, Diverticulitis, Homicidal, Suicidal, threat to staff... and all critical care pts) @yeS, chest pain, arrhythmia - Lab Data Result diagrams: 03/30/23 21:00 03/30/23 21:00 Lab Results 03/30/23 03/30/23 03/30/23 Range/Units 21:00 21:00 21:00 WBC 11.4 H (3.8-10.6) k/uL RBC 4.89 (4.30-5.90) m/uL Hgb 15.2 (13.0-17.5) gm/dL Hct 44.2 (39.0-53.0) % MCV 90.5 (80.0-100.0) fL MCH 31.0 (25.0-35.0) pg MCHC 34.3 (31.0-37.0) g/dL RDW 12.7 (11.5-15.5) % Plt Count 262 (150-450) k/uL MPV 8.8 Neutrophils % 72 % Lymphocytes % 19 % Monocytes % 5 % Eosinophils % 1 % Basophils % 0 % Neutrophils # 8.3 H (1.3-7.7) k/uL Lymphocytes # 2.2 (1.0-4.8) k/uL Monocytes # 0.6 (0-1.0) k/uL Eosinophils # 0.1 (0-0.7) k/uL Basophils # 0.1 (0-0.2) k/uL PT 10.4 (9.0-12.0) sec INR 1.0 (<1.2) APTT 25.5 (22.0-30.0) sec D-Dimer (<0.60) mg/L FEU Sodium 142 (137-145) mmol/L Potassium 3.6 (3.5-5.1) mmol/L Chloride 104 (98-107) mmol/L Carbon Dioxide 25 (22-30) mmol/L Anion Gap 13 mmol/L BUN 15 (9-20) mg/dL Creatinine 1.03 (0.66-1.25) mg/dL Est GFR (CKD-EPI)AfAm >90 (>60 ml/min/1.73 sqM) Est GFR (CKD-EPI)NonAf 88 (>60 ml/min/1.73 sqM) Glucose 134 H (74-99) mg/dL Calcium 8.8 (8.4-10.2) mg/dL Magnesium 2.0 (1.6-2.3) mg/dL Total Bilirubin 0.6 (0.2-1.3) mg/dL AST 41 (17-59) U/L ALT 33 (4-49) U/L Alkaline Phosphatase 92 (38-126) U/L Troponin I (0.000-0.034) ng/mL Total Protein 7.6 (6.3-8.2) g/dL Albumin 4.4 (3.5-5.0) g/dL 03/30/23 03/30/23 Range/Units 21:00 22:12 WBC (3.8-10.6) k/uL RBC (4.30-5.90) m/uL Hgb (13.0-17.5) gm/dL Hct (39.0-53.0) % MCV (80.0-100.0) fL MCH (25.0-35.0) pg MCHC (31.0-37.0) g/dL RDW (11.5-15.5) % Plt Count (150-450) k/uL MPV Neutrophils % % Lymphocytes % % Monocytes % % Eosinophils % % Basophils % % Neutrophils # (1.3-7.7) k/uL Lymphocytes # (1.0-4.8) k/uL Monocytes # (0-1.0) k/uL Eosinophils # (0-0.7) k/uL Basophils # (0-0.2) k/uL PT (9.0-12.0) sec INR (<1.2) APTT (22.0-30.0) sec D-Dimer 0.54 (<0.60) mg/L FEU Sodium (137-145) mmol/L Potassium (3.5-5.1) mmol/L Chloride (98-107) mmol/L Carbon Dioxide (22-30) mmol/L Anion Gap mmol/L BUN (9-20) mg/dL Creatinine (0.66-1.25) mg/dL Est GFR (CKD-EPI)AfAm (>60 ml/min/1.73 sqM) Est GFR (CKD-EPI)NonAf (>60 ml/min/1.73 sqM) Glucose (74-99) mg/dL Calcium (8.4-10.2) mg/dL Magnesium (1.6-2.3) mg/dL Total Bilirubin (0.2-1.3) mg/dL AST (17-59) U/L ALT (4-49) U/L Alkaline Phosphatase (38-126) U/L Troponin I <0.012 (0.000-0.034) ng/mL Total Protein (6.3-8.2) g/dL Albumin (3.5-5.0) g/dL Disposition Clinical Impression: Chest pain Disposition: ADMITTED IP TO THIS [facility] Condition: Stable Is patient prescribed a controlled substance at d/c from ED?: No Time of Disposition: 01:05
--- NOTE | 2023-03-31 01:11 | CT ---
EXAM: CT Abdomen and Pelvis With Intravenous Contrast CLINICAL HISTORY: ITS.REASON CT Reason: ab pain TECHNIQUE: Axial computed tomography images of the abdomen and pelvis with intravenous contrast. CTDI is 35.47 mGy and DLP is 1798.1 mGy-cm. This CT exam was performed using one or more of the following dose reduction techniques: automated exposure control, adjustment of the mA and/or kV according to patient size, and/or use of iterative reconstruction technique. COMPARISON: No relevant prior studies available. FINDINGS: ABDOMEN: Liver: Unremarkable. Gallbladder and bile ducts: Unremarkable. Pancreas: Unremarkable. Spleen: Unremarkable. Adrenals: Unremarkable. Kidneys and ureters: No hydronephrosis. Stomach and bowel: No bowel obstruction. No bowel wall thickening. PELVIS: Appendix: No evidence of appendicitis. Bladder: Mildly thickened. Reproductive: Unremarkable. ABDOMEN and PELVIS: Intraperitoneal space: Unremarkable. Bones/joints: No acute fractures. Soft tissues: Unremarkable. Vasculature: No abdominal aortic aneurysm. Lymph nodes: No enlarged lymph nodes. IMPRESSION: Mildly thickened bladder, correlate with cystitis versus under distention. Otherwise no acute findings.
--- NOTE | 2023-03-31 01:12 | CT ---
EXAM: CT Angiography Chest With Intravenous Contrast CLINICAL HISTORY: ITS.REASON CT Reason: CP/SOB TECHNIQUE: Axial computed tomographic angiography images of the chest with intravenous contrast. CTDI is 18 mGy and DLP is 712 mGy-cm. This CT exam was performed using one or more of the following dose reduction techniques: automated exposure control, adjustment of the mA and/or kV according to patient size, and/or use of iterative reconstruction technique. MIP reconstructed images were created and reviewed. COMPARISON: No relevant prior studies available. FINDINGS: Pulmonary arteries: No filling defects. Aorta: No thoracic aortic aneurysm. Lungs: No mass. No consolidation. Pleural space: No pneumothorax. No effusion. Heart: No cardiomegaly. No pericardial effusion. Bones/joints: No acute fracture or dislocation. Soft tissues: Unremarkable. Lymph nodes: No enlarged lymph nodes. IMPRESSION: No acute intrathoracic findings.
[2023-03-31] MEDS ORDERED: ASPIRIN 325 MG TAB PO STA (02:05)
[2023-03-31] MEDS ORDERED: ACETAMINOPHEN TAB 325 MG TAB PO PRN (02:15)
[2023-03-31] MEDS ORDERED: SODIUM CHLORIDE 0.9% 1,000 ML IV SCH (02:15)
[2023-03-31] MEDS ORDERED: HYDROmorphone 0.5 MG/0.5 ML SYRINGE IVP PRN (02:15)
[2023-03-31] MEDS ORDERED: NALOXONE 0.4 MG/ML 1 ML VIAL IV PRN (02:15)
[2023-03-31 07:54] VITALS: RESP 16; TEMP 98.5
[2023-03-31] MEDS ORDERED: HEPARIN SODIUM,PORCINE/PF 5,000 UNIT/0.5 ML SYRINGE SQ SCH (08:30)
[2023-03-31] MEDS ORDERED: NAPROXEN 250 MG TAB PO SCH (09:00)
[2023-03-31] MEDS ORDERED: METOPROLOL TARTRATE 50 MG TAB PO SCH (09:00)
[2023-03-31] MEDS ORDERED: PROPRANOLOL 40 MG TAB PO SCH (09:00)
[2023-03-31] MEDS ORDERED: NAPROXEN 250 MG TAB PO PRN (09:01)
--- NOTE | 2023-03-31 09:02 | P.CRDCN ---
History of Present Illness History of present illness: HISTORY OF PRESENT ILLNESS: This is a 42-year-old male with a past medical history significant for hypertension, seizure disorder, chronic back and neck pain, bipolar disorder, depression, and nicotine dependence. Patient does not follow with a copyman. We have been asked to see the patient in consultation for chest pain. Patient examined at the bedside. Patient presented to the hospital with a chief complaint of pain and swelling in his left lower extremity. He underwent an ultrasound which was negative for DVT. He states he has been elevating it at home and resting without much relief. He also reports having chest pain yesterday. He states that it the pain was in the middle of his chest and folic somebody was punching him. He states the pain would last for about 30-40 seconds and then stop. At the time of examination this morning he denies chest pain or pressure. The patient reports occasional cigarette smoking or cigar smoking. This morning he is tachycardic with a heart rate around 110. * EKG reveals sinus mechanism with no signs of acute ischemia * Chest xray negative for acute process * Left lower extremity Doppler: Negative for DVT * Chest CTA: Negative for acute process * Laboratory data: WBC 11.4. Hemoglobin 15.2. Platelet count 262. D-dimer 0.54. Sodium 142. Potassium 3.6. BUN 15. Creatinine 1.03. Troponin negative 3. * Current home cardiac medications include propanolol 40 mg twice a day REVIEW OF SYSTEMS: At the time of my exam: CONSTITUTIONAL: Denies fever or chills. HEENT: Denies blurred vision, vision changes, or eye pain. Denies hemoptysis CARDIOVASCULAR: Denies chest pain. Denies orthopnea. Denies PND. Denies palpitations RESPIRATORY: Denies shortness of breath. GASTROINTESTINAL: Denies abdominal pain. Denies nausea or vomiting. HEMATOLOGIC: Denies bleeding disorders. GENITOURINARY: Denies any blood in urine. SKIN: Denies pruitis. Denies rash. PHYSICAL EXAM: VITAL SIGNS: Reviewed. GENERAL: Well-developed in no acute distress. HEENT: Head is normocephalic. Pupils are equal, round. Sclerae anicteric. Mucous membranes of the mouth are moist. Neck supple. No JVD or thyromegaly LUNGS: Respirations even and unlabored. Lungs essentially clear to auscultation bilaterally. HEART: Regular rate and rhythm. S1 and S2 heard. ABDOMEN: Soft. Nondistended. Nontender. EXTREMITIES: Normal range of motion. No clubbing or cyanosis. Peripheral p ulses intact. No lower extremity edema NEUROLOGIC: Awake and alert. Oriented x 3. ASSESSMENT: Chest pain, atypical, troponin negative 3 Left lower extremity pain, etiology unclear, Doppler negative for DVT Hypertension Seizure disorder Chronic back and neck pain Bipolar disorder Depression Nicotine dependence PLAN: An acute coronary event has been ruled out Obtain 2-D echo to assess cardiac structure and function Recommend naproxen as needed for left lower extremity pain. Further workup of left lower extremity pain per primary medicine Discontinue propanolol. Begin metoprolol tartrate 50 mg twice a day Patient may be discharged home today from a cardiac standpoint and follow up on an outpatient basis Nurse practitioner note has been reviewed by physician. Signing provider agrees with the documented findings, assessment, and plan of care. Past Medical History Past Medical History: Seizure Disorder Additional Past Medical History / Comment(s): back pain HERNIATION OF CERICAL AND LUMBAR History of Any Multi-Drug Resistant Organisms: None Reported Past Surgical History: No Surgical Hx Reported Past Psychological History: Bipolar, Depression Smoking Status: Vaper Past Alcohol Use History: None Reported Past Drug Use History: None Reported, Marijuana Medications and Allergies Home Medications Medication Instructions Recorded Confirmed Type Baclofen [Lioresal] 10 mg PO BID PRN 05/30/18 03/31/23 History Cariprazine HCl [Vraylar] 1.5 mg PO DAILY 03/31/23 03/31/23 History DULoxetine HCL [Cymbalta] 40 mg PO BID 03/31/23 03/31/23 History Dextroamphetamine/Amphetamine 30 mg PO BID 03/31/23 03/31/23 History [Adderall] Diclofenac Sodium Gel [Voltaren 2 - 4 gm TOPICAL QID PRN 03/31/23 03/31/23 History Gel] Ergocalciferol [Vitamin D2 (1250 1,250 mcg PO QMONTHLY 03/31/23 03/31/23 History Mcg = 46630 Iu)] Pregabalin [Lyrica] 150 mg PO TID 03/31/23 03/31/23 History Propranolol [Inderal] 40 mg PO BID 03/31/23 03/31/23 History hydrOXYzine pamoate [Vistaril] 25 mg PO BID PRN 03/31/23 03/31/23 History Allergies Allergy/AdvReac Type Severity Reaction Status Date / Time cortisone Allergy Unknown Verified 10/20/20 12:12 cyclobenzaprine HCl Allergy Rash/Hives Verified 10/20/20 12:12 [From Flexeril] ketorolac Allergy Nausea & Verified 10/20/20 12:12 Vomiting lidocaine Allergy Rash/Hives Verified 10/20/20 12:12 Physical Exam Vitals: Vital Signs Temp Pulse Pulse Pulse Resp BP BP 03/31/23 07:51 102 H 03/31/23 07:47 03/31/23 07:00 98.5 F 92 16 136/86 03/31/23 03:52 98.1 F 105 H 17 154/89 03/31/23 02:09 112 H 13 116/87 03/31/23 02:03 112 H 13 116/87 03/31/23 00:45 110 H 15 137/89 03/30/23 22:30 120 H 03/30/23 22:29 120 H 95 H 140/87 03/30/23 21:43 108 H 15 131/89 03/30/23 20:59 97.9 F 120 H 20 145/91 Pulse Ox FiO2 03/31/23 07:51 03/31/23 07:47 97 21 03/31/23 07:00 97 03/31/23 03:52 98 03/31/23 02:09 95 03/31/23 02:03 95 03/31/23 00:45 96 03/30/23 22:30 03/30/23 22:29 95 03/30/23 21:43 03/30/23 20:59 96 Intake and Output 03/30/23 03/31/23 03/31/23 22:59 06:59 14:59 Other: Voiding Method Toilet # Voids 1 Weight 107.048 kg 107.048 kg Results 03/30/23 21:00 03/30/23 21:00 Cardiac Enzymes 03/30/23 03/30/23 03/31/23 Range/Units 21:00 21:00 02:55 AST 41 (17-59) U/L Troponin I <0.012 <0.012 (0.000-0.034) ng/mL 05/24/23 Range/Units 05:42 AST (17-59) U/L Troponin I <0.012 (0.000-0.034) ng/mL Coagulation 03/30/23 Range/Units 21:00 PT 10.4 (9.0-12.0) sec APTT 25.5 (22.0-30.0) sec CBC 03/30/23 Range/Units 21:00 WBC 11.4 H (3.8-10.6) k/uL RBC 4.89 (4.30-5.90) m/uL Hgb 15.2 (13.0-17.5) gm/dL Hct 44.2 (39.0-53.0) % Plt Count 262 (150-450) k/uL Comprehensive Metabolic Panel 03/30/23 Range/Units 21:00 Sodium 142 (137-145) mmol/L Potassium 3.6 (3.5-5.1) mmol/L Chloride 104 (98-107) mmol/L Carbon Dioxide 25 (22-30) mmol/L BUN 15 (9-20) mg/dL Creatinine 1.03 (0.66-1.25) mg/dL Glucose 134 H (74-99) mg/dL Calcium 8.8 (8.4-10.2) mg/dL AST 41 (17-59) U/L ALT 33 (4-49) U/L Alkaline Phosphatase 92 (38-126) U/L Total Protein 7.6 (6.3-8.2) g/dL Albumin 4.4 (3.5-5.0) g/dL Current Medications Generic Name Dose Route Start Last Admin Trade Name Freq PRN Reason Stop Dose Admin Acetaminophen 650 mg 03/31/23 02:15 Acetaminophen Tab 325 Mg Tab PO Q6HR PRN Mild Pain or Fever > 100.5 Hydromorphone HCl 0.5 mg 03/31/23 02:15 03/31/23 04:09 Hydromorphone 0.5 Mg/0.5 Ml Syringe IVP 0.5 mg Q3HR PRN Administration Moderate Pain (Scale 4 to 6) Sodium Chloride 1,000 mls @ 75 mls/hr 03/31/23 02:15 03/31/23 03:24 Saline 0.9% IV 75 mls/hr .[id number] JOANA Administration Naloxone HCl 0.2 mg 03/31/23 02:15 Naloxone 0.4 Mg/Ml 1 Ml Vial IV Q2M PRN Opioid Reversal Intake and Output 03/30/23 03/31/23 03/31/23 22:59 06:59 14:59 Other: Voiding Method Toilet # Voids 1 Weight 107.048 kg 107.048 kg 03/30/23 21:00 03/30/23 21:00
[2023-03-31 09:40] VITALS: BP 132/82; PULSE 93
[2023-03-31] MEDS ORDERED: BACLOFEN 10 MG TAB PO PRN (09:58)
[2023-03-31] MEDS ORDERED: hydrOXYzine pamoate 25 MG CAP PO PRN (09:58)
[2023-03-31] MEDS ORDERED: PREGABALIN 75 MG CAP PO SCH (10:00)
--- NOTE | 2023-03-31 10:00 | P.HPIM ---
History of Present Illness H&P Date: 03/31/23 Chief Complaint: Chest pain This is a 42-year-old male patient of Dr. Johnson who presented with complaints of chest pain. Patient reports that pain has been intermittent since yesterday. Patient was also complaining of swelling to left lower extremity. Patient has past medical history of hypertension, seizure disorder, chronic back and neck pain, bipolar disorder, depression and nicotine dependence. Chest x-ray completed showing negative for acute process. Left lower extremity Doppler completed negative for DVT. Chest CTA completed showing negative for acute proc ess. D-dimer 0.54. Troponins negative 3. At this time patient has been admitted to cardiology service is consulted 2-D echo ordered. Patient reports occasional occurrence of chest discomfort. Patient denies associated shortness of breath. Patient denies nausea vomiting or diarrhea. Patient denies any urinary burning or frequency. Review of Systems please refer to HPI otherwise unremarkable Past Medical History Past Medical History: Seizure Disorder Additional Past Medical History / Comment(s): back pain HERNIATION OF CERICAL AND LUMBAR History of Any Multi-Drug Resistant Organisms: None Reported Past Surgical History: No Surgical Hx Reported Past Psychological History: Bipolar, Depression Smoking Status: Vaper Past Alcohol Use History: None Reported Past Drug Use History: None Reported, Marijuana Medications and Allergies Home Medications Medication Instructions Recorded Confirmed Type Baclofen [Lioresal] 10 mg PO BID PRN 05/30/18 03/31/23 History Cariprazine HCl [Vraylar] 1.5 mg PO DAILY 03/31/23 03/31/23 History DULoxetine HCL [Cymbalta] 40 mg PO BID 03/31/23 03/31/23 History Dextroamphetamine/Amphetamine 30 mg PO BID 03/31/23 03/31/23 History [Adderall] Diclofenac Sodium Gel [Voltaren 2 - 4 gm TOPICAL QID PRN 03/31/23 03/31/23 History Gel] Ergocalciferol [Vitamin D2 (1250 1,250 mcg PO QMONTHLY 03/31/23 03/31/23 History Mcg = 60670 Iu)] Pregabalin [Lyrica] 150 mg PO TID 03/31/23 03/31/23 History Propranolol [Inderal] 40 mg PO BID 03/31/23 03/31/23 History hydrOXYzine pamoate [Vistaril] 25 mg PO BID PRN 03/31/23 03/31/23 History Allergies Allergy/AdvReac Type Severity Reaction Status Date / Time cortisone Allergy Unknown Verified 10/20/20 12:12 cyclobenzaprine HCl Allergy Rash/Hives Verified 10/20/20 12:12 [From Flexeril] ketorolac Allergy Nausea & Verified 10/20/20 12:12 Vomiting lidocaine Allergy Rash/Hives Verified 10/20/20 12:12 Physical Exam Vitals: Vital Signs Temp Pulse Pulse Pulse Resp BP BP 03/31/23 09:39 93 132/82 03/31/23 07:51 102 H 03/31/23 07:47 03/31/23 07:00 98.5 F 92 16 136/86 03/31/23 03:52 98.1 F 105 H 17 154/89 03/31/23 02:09 112 H 13 116/87 03/31/23 02:03 112 H 13 116/87 03/31/23 00:45 110 H 15 137/89 03/30/23 22:30 120 H 03/30/23 22:29 120 H 95 H 140/87 03/30/23 21:43 108 H 15 131/89 03/30/23 20:59 97.9 F 120 H 20 145/91 Pulse Ox FiO2 03/31/23 09:39 03/31/23 07:51 03/31/23 07:47 97 21 03/31/23 07:00 97 03/31/23 03:52 98 03/31/23 02:09 95 03/31/23 02:03 95 03/31/23 00:45 96 03/30/23 22:30 03/30/23 22:29 95 03/30/23 21:43 03/30/23 20:59 96 Intake and Output 03/30/23 03/31/23 03/31/23 22:59 06:59 14:59 Other: Voiding Method Toilet # Voids 1 Weight 107.048 kg 107.048 kg Head normocephalic Neck supple Lungs clear to auscultation bilaterally no wheezing or crackles Heart regular rate and rhythm S1-S2, no rub or gallop Abdomen is soft nontender nondistended positive bowel sounds no hepatosplenomegaly Extremities no edema Neuro alert and orientated to 3 Results CBC & Chem 7: 03/30/23 21:00 05/23/23 21:00 Labs: Abnormal Lab Results - Last 24 Hours (Table) 03/30/23 03/30/23 Range/Units 21:00 21:00 WBC 11.4 H (3.8-10.6) k/uL Neutrophils # 8.3 H (1.3-7.7) k/uL Glucose 134 H (74-99) mg/dL Assessment and Plan Assessment: 1. Chest pain. Troponins negative 3. Per cardiology and acute coronary event has been ruled out 2-D echo ordered patient cleared for discharge once completed 2. History of essential hypertension 3. History of seizure disorder 4. Chronic back and neck pain 5. Bipolar disorder 6. Nicotine dependence 7. Left lower extremity edema negative for DVT 8. Mildly thickened bladder seen on CT of abdomen. UA ordered to rule out cystitis Cardiology services consulted 2-D echo ordered UA ordered Time with Patient: Greater than 30 (Greater than 60% of the total time spent in counseling and coordination of care)
[2023-03-31] MEDS ORDERED: DULoxetine HCL 20 MG CAPSULE.DR PO SCH (10:30)
[2023-03-31 10:45] LABS: Appearance,Urine Clear (Clear); Bilirubin,Urine Negative (Negative); Blood,Urine Negative (Negative); Color,Urine Yellow; Glucose,Urine (UA) Negative (Negative); Ketones,Urine Negative (Negative); Leukocyte Esterase,Urine Negative (Negative); Mucus,Urine Rare /hpf; Nitrite,Urine Negative (Negative); PH, Urine 7.5 (5.0-8.0); Protein,Urine 1+ (Negative); RBC,Urine 1 /hpf (0-5); Specific Gravity,Urine 1.028 (1.001-1.035); Urobilinogen,Urine <2.0 mg/dL (<2.0); WBC,Urine 1 /hpf (0-5)
--- NOTE | 2023-03-31 11:51 | CA ---
Transthoracic Echo Report Name: Dennis Vazquez Age: 42 Gender: M : 1980 Exam Date: 03/31/2023 09:44 Exam Location: [facility] Ht (in): 65 Wt (lb): 236 Ordering Physician: Onesimo Hampton MD Attending/Referring Phys: [id number], Memo Joy Operator Helper Cally Vasques RDCS Procedure CPT: Indications: CP Cardiac Hx: Technical Quality: Fair Contrast 1: Total Dose (mL): Contrast 2: Total Dose (mL): MEASUREMENTS (Male / Female) Normal Values 2D ECHO LV Diastolic Diameter PLAX 4.6 cm 4.2 - 5.9 / 3.9 - 5.3 cm LV Systolic Diameter PLAX 3.1 cm IVS Diastolic Thickness 1.2 cm 0.6 - 1.0 / 0.6 - 0.9 cm LVPW Diastolic Thickness 1.2 cm 0.6 - 1.0 / 0.6 - 0.9 cm LV Relative Wall Thickness 0.5 RV Internal Dim ED PLAX 3.5 cm LA Systolic Diameter LX 2.9 cm 3.0 - 4.0 / 2.7 - 3.8 cm LV Diastolic Volume MOD BP 106.3 cm??? 67 - 155 / 56 - 104 cm??? LV Systolic Volume MOD BP 48.9 cm??? - / 19 - 49 cm??? LV Ejection Fraction MOD BP 54.0 % >= 55 % LV Cardiac Index MOD BP 1721.3 cm???/min???m??? LV Diastolic Volume MOD 4C 136.2 cm??? LV Systolic Volume MOD 4C 49.9 cm??? LV Ejection Fraction MOD 4C 63.4 % LV Cardiac Index MOD 4C 2589.9 cm???/min???m??? LV Diastolic Length 4C 7.7 cm LV Systolic Length 4C 6.2 cm LV Diastolic Volume MOD 2C 72.3 cm??? LV Systolic Volume MOD 2C 40.6 cm??? LV Ejection Fraction MOD 2C 43.8 % LV Cardiac Index MOD 2C 949.5 cm???/min???m??? LV Diastolic Length 2C 6.7 cm LV Systolic Length 2C 5.1 cm LA Volume 46.8 cm??? - 58 / 22 - 52 cm??? M-MODE Aortic Root Diameter MM 3.8 cm MV E Point Septal Separation 0.9 cm AV Cusp Separation MM 2.3 cm DOPPLER AV Peak Velocity 117.3 cm/s AV Peak Gradient 5.5 mmHg MV Area PHT 3.6 cm??? Mitral E Point Velocity 72.6 cm/s Mitral A Point Velocity 79.3 cm/s Mitral E to A Ratio 0.9 MV Deceleration Time 209.5 ms FINDINGS Left Ventricle Left ventricular ejection fraction is estimated at 55-60 %. Left ventricular cavity size normal. Mildly increased septal wall thickness. Mildly decreased left ventricular ejection fraction. Right Ventricle Mild right ventricular dilatation. Unable to estimate the right ventricular systolic pressure. Right Atrium Normal right atrial size. Left Atrium Normal left atrial size. Mitral Valve Structurally normal mitral valve. Trace mitral regurgitation. Aortic Valve Trileaflet aortic valve. No aortic valve stenosis or regurgitation. Tricuspid Valve Structurally normal tricuspid valve. No tricuspid stenosis, regurgitation or prolapse. Pulmonic Valve Structurally normal pulmonic valve. No pulmonic regurgitation. Pericardium Normal pericardium. Aorta Mild aortic dilatation at the level of the sinuses of valsalva 38 mm CONCLUSIONS Normal LV size and systolic function with mild concentric LVH. Mild mitral and tricuspid regurgitation. Right-sided pressures are not well quantified. Mild prominence of aortic root. No pericardial effusion Previewed by: Dr. Smith Dodd MD (Electronically Signed) Final Date: 31 Mar 2023 11:51
--- NOTE | 2023-03-31 12:42 | P.DS ---
Providers Date of admission: 03/31/23 02:16 Expected date of discharge: 03/31/23 Attending physician: Jean Sherwood Primary care physician: Lorena Johnson Hospital Course: discharge diagnosis 1. Chest pain. Troponins negative 3. Per cardiology and acute coronary event has been ruled out 2-D echo ordered patient cleared for discharge once completed 2. History of essential hypertension 3. History of seizure disorder 4. Chronic back and neck pain 5. Bipolar disorder 6. Nicotine dependence 7. Left lower extremity edema negative for DVT 8. Mildly thickened bladder seen on CT of abdomen. UA ordered to rule out cystitis Hospital course This is a 42-year-old male patient of Dr. Johnson who presented with complaints of chest pain. Patient reports that pain has been intermittent since yesterday. Patient was also complaining of swelling to left lower extremity. Patient has past medical history of hypertension, seizure disorder, chronic back and neck pain, bipolar disorder, depression and nicotine dependence. Chest x-ray completed showing negative for acute process. Left lower extremity Doppler completed negative for DVT. Chest CTA completed showing negative for acute process. D-dimer 0.54. Troponins negative 3. At this time patient has been admitted to cardiology service is consulted 2-D echo ordered. Patient reports occasional occurrence of chest discomfort. Patient denies associated shortness of breath. Patient denies nausea vomiting or diarrhea. Patient denies any urinary burning or frequency. 2D echo completed ef 55-60. patient cleared for d/c from cardiology. u/a negative. patient to follow up with pcp and cardiology for further management Patient Condition at Discharge: Stable Plan - Discharge Summary New Discharge Prescriptions: New Metoprolol Tartrate [Lopressor] 50 mg PO BID 30 Days #60 tab Continue Baclofen [Lioresal] 10 mg PO BID PRN PRN Reason: Muscle Spasm DULoxetine HCL [Cymbalta] 40 mg PO BID Cariprazine HCl [Vraylar] 1.5 mg PO DAILY Pregabalin [Lyrica] 150 mg PO TID Ergocalciferol [Vitamin D2 (1250 Mcg = 03685 Iu)] 1,250 mcg PO QMONTHLY Dextroamphetamine/Amphetamine [Adderall] 30 mg PO BID hydrOXYzine pamoate [Vistaril] 25 mg PO BID PRN PRN Reason: Anxiety Diclofenac Sodium Gel [Voltaren Gel] 2 - 4 gm TOPICAL QID PRN PRN Reason: Pain Discontinued Propranolol [Inderal] 40 mg PO BID Discharge Medication List Baclofen [Lioresal] 10 mg PO BID PRN 05/30/18 [History] Cariprazine HCl [Vraylar] 1.5 mg PO DAILY 03/31/23 [History] DULoxetine HCL [Cymbalta] 40 mg PO BID 03/31/23 [History] Dextroamphetamine/Amphetamine [Adderall] 30 mg PO BID 03/31/23 [History] Diclofenac Sodium Gel [Voltaren Gel] 2 - 4 gm TOPICAL QID PRN 03/31/23 [History] Ergocalciferol [Vitamin D2 (1250 Mcg = 00402 Iu)] 1,250 mcg PO QMONTHLY 03/31/23 [History] Metoprolol Tartrate [Lopressor] 50 mg PO BID 30 Days #60 tab 03/31/23 [Rx] Pregabalin [Lyrica] 150 mg PO TID 03/31/23 [History] hydrOXYzine pamoate [Vistaril] 25 mg PO BID PRN 03/31/23 [History] Follow up Appointment(s)/Referral(s): Smith Dodd MD [STAFF PHYSICIAN] - 3 Weeks Lorena Johnson MD [Primary Care Provider] - 1-2 days Patient Instructions/Handouts: Chest Pain (DC) Discharge Disposition: HOME SELF-CARE
[2023-04-01] MEDS ORDERED: NON FORMULARY DRUG (Cariprazine Hcl [Vraylar] 1.5 MG Capsule) PO SCH (09:00)
== END 2023-03-31 13:37 | disposition home or self-care (01) ==
LOC: EC 20:47 → 6NMEDSUR 03-31 02:16
PROVIDERS: ADMIT Internal Medicine; ATTEND Internal Medicine
DX: R07.89 Other chest pain (principal); I10 Essential (primary) hypertension; R79.89 Other specified abnormal findings of blood chemistry; G40.909 Epilepsy, unspecified, not intractable, without status epilepticus; G89.29 Other chronic pain; M50.20 Other cervical disc displacement, unspecified cervical region; M51.26 Other intervertebral disc displacement, lumbar region; R00.0 Tachycardia, unspecified; R42 Dizziness and giddiness; M79.605 Pain in left leg; R60.0 Localized edema; F31.9 Bipolar disorder, unspecified; F17.210 Nicotine dependence, cigarettes, uncomplicated; F17.290 Nicotine dependence, other tobacco product, uncomplicated; Z79.899 Other long term (current) drug therapy; Z88.4 Allergy status to anesthetic agent; Z88.8 Allergy status to other drugs, medicaments and biological substances
CPT/HCPCS: 96376; 96374; 99285; 36415; 94760; 93005; 93306; 85379; 80053; 83735; 84484 ×2; 85025; 85610; 85730; 81001; 71046; 93971; 71275; 74177; G0378; J1170 ×2; Q9967

== ENCOUNTER 2023-04-06 06:16 | Emergency (ER) | payer OTHER ==
[2023-04-06 06:32] VITALS: TEMP 98.1
[2023-04-06] MEDS ORDERED: FAMOTIDINE 20 MG/2 ML VIAL IV STA (06:59)
[2023-04-06] MEDS ORDERED: methylPREDNISolone SOD SUCCI 125 MG/2 ML VIAL IV STA (06:59)
[2023-04-06] MEDS ORDERED: diphenhydrAMINE 50 MG/ML 1 ML VIAL IVP STA (07:00)
--- NOTE | 2023-04-06 07:35 | ED ---
Allergic Reaction HPI - General Chief complaint: Allergic Reaction Stated complaint: Allergic Reaction Time Seen by Provider: 04/06/23 06:45 Source: patient, RN notes reviewed Mode of arrival: ambulatory Limitations: no limitations - History of Present Illness Initial Comments: Pt is a 42 year old male with a PMH significant for HTN. Patient states that he was recently started on Lopressor 2 days ago. Patient states since starting this medication, has broke out in hives. States hives initially started on his back and since then spread all over his body. Denies dyspnea. Patient was seen at [facility] yesterday. States he was given hydroxyzine. This provided no relief prompting presentation today. - Related Data Home Medications Medication Instructions Recorded Confirmed Baclofen [Lioresal] 10 mg PO BID PRN 05/30/18 03/31/23 Cariprazine HCl [Vraylar] 1.5 mg PO DAILY 03/31/23 03/31/23 DULoxetine HCL [Cymbalta] 40 mg PO BID 03/31/23 03/31/23 Dextroamphetamine/Amphetamine 30 mg PO BID 03/31/23 03/31/23 [Adderall] Diclofenac Sodium Gel [Voltaren 2 - 4 gm TOPICAL QID PRN 03/31/23 03/31/23 Gel] Ergocalciferol [Vitamin D2 (1250 1,250 mcg PO QMONTHLY 03/31/23 03/31/23 Mcg = 72323 Iu)] Pregabalin [Lyrica] 150 mg PO TID 03/31/23 03/31/23 hydrOXYzine pamoate [Vistaril] 25 mg PO BID PRN 03/31/23 03/31/23 Previous Rx's Medication Instructions Recorded Metoprolol Tartrate [Lopressor] 50 mg PO BID 30 Days #60 tab 03/31/23 diphenhydrAMINE [Benadryl] 50 mg PO QID PRN #20 capsule 04/06/23 predniSONE 50 mg PO DAILY #5 tab 04/06/23 Allergies Allergy/AdvReac Type Severity Reaction Status Date / Time cortisone Allergy Unknown Verified 04/06/23 06:29 cyclobenzaprine HCl Allergy Rash/Hives Verified 04/06/23 06:29 [From Flexeril] ketorolac Allergy Nausea & Verified 04/06/23 06:29 Vomiting lidocaine Allergy Rash/Hives Verified 04/06/23 06:29 metoprolol [From Lopressor] Allergy Rash/Hives Verified 04/06/23 06:29 Review of Systems ROS Statement: Those systems with pertinent positive or pertinent negative responses have been documented in the HPI. ROS Other: All systems not noted in ROS Statement are negative. Respiratory: Reports: as per HPI Skin: Reports: rash Past Medical History Past Medical History: Hypertension, Seizure Disorder Additional Past Medical History / Comment(s): back pain HERNIATION OF CERICAL AND LUMBAR History of Any Multi-Drug Resistant Organisms: None Reported Past Surgical History: No Surgical Hx Reported Past Psychological History: Bipolar, Depression Smoking Status: Vaper Past Alcohol Use History: None Reported Past Drug Use History: None Reported General Exam Limitations: no limitations General appearance: alert, in no apparent distress Head exam: Present: atraumatic, normocephalic Eye exam: Present: normal appearance ENT exam: Present: normal exam Respiratory exam: Present: normal lung sounds bilaterally Cardiovascular Exam: Present: regular rate, normal rhythm Neurological exam: Present: alert, oriented X3 Psychiatric exam: Present: normal affect Skin exam: Present: urticaria Course Vital Signs 04/06/23 04/06/23 06:29 08:08 Temperature 98.1 F Pulse Rate 98 87 Respiratory 16 18 Rate Blood Pressure 150/82 113/73 O2 Sat by Pulse 98 97 Oximetry Medical Decision Making - Medical Decision Making Was pt. sent in by a medical professional or institution ([facility], [facility], urgent care, hospital, or penitentiary...) When possible be specific @ -No Did you speak to anyone other than the patient for history (EMS, parent, family, police, friend...)? What history was obtained from this source @ -No Did you review nursing and triage notes (agree or disagree)? Why? @ -I reviewed and agree with nursing and triage notes Were old charts reviewed (outside hosp., previous admission, EMS record, old EKG, old radiological studies, urgent care reports/EKG's, penitentiary records)? Report findings @ -No old charts were reviewed Differential Diagnosis (chest pain, altered mental status, abdominal pain women, abdominal pain men, vaginal bleeding, weakness, fever, dyspnea, syncope, headache, dizziness, GI bleed, back pain, seizure, CVA, palpatations, mental health, musculoskeletal)? @ -Anaphylaxis, drug reaction, allergic reaction. This list is not all- inclusive EKG interpreted by me (3pts min.). @ -None X-rays interpreted by me (1pt min.). @ -None done CT interpreted by me (1pt min.). @ -None done U/S interpreted by me (1pt. min.). @ -None done What testing was considered but not performed or refused? (CT, X-rays, U/S, labs)? Why? @ -None What meds were considered but not given or refused? Why? @ -None Did you discuss the management of the patient with other professionals (professionals i.e. Dr., PA, [facility], lab, RT, psych nurse, social media marketing specialist, automotive customer experience advisor, teacher, officer captain, case management assistant)? Give summary @ -No Was smoking cessation discussed for >3mins.? @ -No Was critical care preformed (if so, how long)? @ -No Were there social determinants of health that impacted care today? How? (Homelessness, low income, unemployed, alcoholism, drug addiction, transportation, low edu. Level, literacy, decrease access to med. care, retirement, rehab)? @ -No Was there de-escalation of care discussed even if they declined (Discuss DNR or withdrawal of care, Hospice)? DNR status @ -No What co-morbidities impacted this encounter? (DM, HTN, Smoking, COPD, CAD, Cancer, CVA, ARF, Chemo, Hep., AIDS, mental health diagnosis, sleep apnea, morbid obesity)? @ -None Was patient admitted / discharged? Hospital course, mention meds given and route, prescriptions, significant lab abnormalities, going to OR and other pertinent info. @ -Discharged given IV Solu-Medrol and Benadryl with improvement of rash discharged with prescription for steroids and Benadryl. Undiagnosed new problem with uncertain prognosis? @ -No Drug Therapy requiring intensive monitoring for toxicity (Heparin, Nitro, Insulin, Cardizem)? @ -No Were any procedures done? @ -No Diagnosis/symptom? @ -ALLERGIC reaction Acute, or Chronic, or Acute on Chronic? @ -Acute Uncomplicated (without systemic symptoms) or Complicated (systemic symptoms)? @ -Uncomplicated Side effects of treatment? @ -No Exacerbation, Progression, or Severe Exacerbation? @ -No Poses a threat to life or bodily function? How? (Chest pain, [place], [place], pneumonia, PE, COPD, DKA, ARF, appy, cholecystitis, CVA, Diverticulitis, Homicidal, Suicidal, threat to staff... and all critical care pts) @ -No Disposition Clinical Impression: Allergic reaction to drug Disposition: HOME SELF-CARE Condition: Good Instructions (If sedation given, give patient instructions): Anaphylaxis (ED) Additional Instructions: Please return to the Emergency Department if symptoms worsen or any other concerns. Prescriptions: diphenhydrAMINE [Benadryl] 50 mg PO QID PRN #20 capsule PRN Reason: Allergic Reaction predniSONE 50 mg PO DAILY #5 tab Is patient prescribed a controlled substance at d/c from ED?: No Referrals: Lorena Johnson MD [Primary Care Provider] - 1-2 days Time of Disposition: 08:45
[2023-04-06 08:10] VITALS: BP 113/73; PULSE 87; RESP 18
== END 2023-04-06 09:07 | disposition home or self-care (01) ==
LOC: EC 06:16
DX: L50.9 Urticaria, unspecified (principal); T44.7X5A Adverse effect of beta-adrenoreceptor antagonists, initial encounter; I10 Essential (primary) hypertension; F31.9 Bipolar disorder, unspecified; F17.290 Nicotine dependence, other tobacco product, uncomplicated; Z79.899 Other long term (current) drug therapy; Z88.1 Allergy status to other antibiotic agents; Z88.6 Allergy status to analgesic agent; Z88.8 Allergy status to other drugs, medicaments and biological substances
CPT/HCPCS: 99283 ×2; 96374 ×2; 96375 ×3; J1200; J2930